=== PATIENT | female | born 2000 | race Native Hawaiian/Other Pacific Islander ===

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

== ENCOUNTER 2020-09-11 12:06 | Outpatient (CLI) | payer BC | END 2020-09-11 22:38 | disposition home or self-care (01) | LOC: RAD 12:06 | PROVIDERS: ATTEND Registered Nurse | DX: M79.672 Pain in left foot (principal) ==